=== PATIENT | male | born 1955 | race Caucasian/White ===

== ENCOUNTER 2016-12-01 05:51 | Inpatient (IN) | payer OTHER ==
[2016-11-18 13:15] VITALS: BMI 27.0
--- NOTE | 2016-11-18 13:55 | PAT Medication Instructions ---
Service Date Nov 18, 2016. Current Home Medication List Aspirin (Aspir-Low), 81 MG PO QAM Bilberry (Vaccinium Myrtillus) (Bilberry), 250 MG PO QAM Cholecalciferol (Vitamin D3), 1 TAB PO QAM Fish Oil ([place]-3), 1 CAP PO QAM Insulin Human Lispro (Insulin Humalog Pump ), 1 EA N/A UD Levothyroxine Sodium (Levothyroxine Sodium), 125 MCG PO QAM Losartan Potassium (Cozaar), 50 MG PO QAM Lovastatin (Mevacor), 20 MG PO QAM Multivitamin (Multivitamin), 1 TAB PO QAM [Core Minerals ], 1 TAB PO QAM [Denisse Antioxidant ], 1 TAB PO QAM Medication Instructions For Your Scheduled Surgery - Check with surgeon/desk manager: Aspirin (Aspir-Low), 81 MG PO QAM - Hold the following medications 2 weeks prior to surgery: Fish Oil ([place]oose-3), 1 CAP PO QAM Bilberry (Vaccinium Myrtillus) (Bilberry), 250 MG PO QAM [Core Minerals ], 1 TAB PO QAM [Denisse Antioxidant ], 1 TAB PO QAM - Hold the following medications the morning of surgery: Multivitamin (Multivitamin), 1 TAB PO QAM Losartan Potassium (Cozaar), 50 MG PO QAM Cholecalciferol (Vitamin D3), 1 TAB PO QAM - Take the following medications the morning of surgery with a sip of water: Lovastatin (Mevacor), 20 MG PO QAM Levothyroxine Sodium (Levothyroxine Sodium), 125 MCG PO QAM - For Insulin Dependent Diabetic patients: Test blood sugar A.M. of surgery. Insulin Human Lispro (Insulin Humalog Pump ), 1 EA N/A UD- continue as basal rate If you have any questions please call us at [phone] or [phone] or [phone]
--- NOTE | 2016-11-18 14:25 | DIAGNOSTIC IMAGING REPORT ---
CHEST PREADMISSION(PA/LAT) CLINICAL HISTORY: PAT preoperative evaluation COMPARISON STUDY: No previous studies for comparison. FINDINGS: Lungs are clear. The cardiac silhouette is unremarkable. Diaphragms smooth. Several old right-sided rib fractures. IMPRESSION: No acute process. Electronically signed by: Ganga Jack M.D. 11/18/2016 2:23 PM Dictated Date/Time: 11/18/2016 2:23 PM
[2016-11-18 14:30] LABS: BASO % 0.2 %; BASO ABS # 0.02 K/uL (0-0.2); COMPLETE YES; EOS % 2.7 %; HEMATOCRIT 44.3 % (42-52); IG% 0.2 %; LYMPH % 42.8 %; LYMPH ABS # 3.45 K/uL (1.2-3.4); MEAN CELL VOLUME 93.7 fL (80-100); MEAN CORPUSCULAR HEMOGLOBIN 29.8 pg (25-34); MEAN CORPUSCULAR HGB CONC 31.8 g/dl (32-36); MONO % 10.7 %; NEUT % 43.4 %; PLATELET COUNT 326 K/uL (130-400); RED BLOOD COUNT 4.73 M/uL (4.7-6.1); WHITE BLOOD COUNT 8.06 K/uL (4.8-10.8)
[2016-11-18 14:34] LABS: CALCIUM 9.3 mg/dl (8.5-10.1); CREATININE 0.84 mg/dl (0.60-1.40); POTASSIUM 4.6 mmol/L (3.5-5.1)
[2016-11-18 14:40] LABS: URINE APPEARANCE CLEAR (CLEAR); URINE BILIRUBIN NEG (NEG); URINE COLOR YELLOW; URINE NITRITE NEG (NEG); URINE SPECIFIC GRAVITY 1.028 (1.000-1.030); UROBILINOGEN NEG (NEG)
[2016-11-18 15:00] LABS: MANUAL MICROSCOPIC REQUIRED? NO; REVIEW REQ? NO
[~2016-12-01] VITALS: Ht 162.6 cm; Wt 73.4 kg
[2016-12-01] VITALS (9 sets, daily range): BP systolic 122–157; BP diastolic 66–94; PULSE 72–100; TEMP 36.6–37.4; O2SAT 95–100; BMI 27.0
[~2016-12-01 05:51] MED LIST: ASPI81TA25 PO; BILB150C PO; CHOL100058 PO; INSPMPHMLG; LACTATED RINGER'S 1000ML 1,000 ML IV SCH; LEVO125T4 PO; LOSA50TA6 PO; LOVA20TA4 PO; MULT-506 PO; OMEG10007 PO; [UNRECOGNIZED DRUG - OTHER] PO; [UNRECOGNIZED DRUG - OTHER] PO
[2016-12-01] MEDS ORDERED: HEPARIN SOD 5000 UNIT/0.5 ML CARP SQ SCH (06:00)
[2016-12-01] MEDS ORDERED: CEFOXITIN IV 2,000 MG in DEXTROSE 5% 50ML 50 ML IV SCH (06:00)
[2016-12-01] MEDS ORDERED: LACTATED RINGER'S 1000ML 1,000 ML IV SCH (06:00)
[2016-12-01] MEDS ORDERED: CEFAZOLIN 2000 MG/60 ML D5W IV SCH (06:00)
[2016-12-01] MEDS ORDERED: BUPIVACAINE 0.5 % 5 MG/1 ML MPF 30ML VIAL ONE (06:52)
[2016-12-01] MEDS ORDERED: MIDAZOLAM HCL 1 MG/ML 2ML VIAL ONE (07:05)
[2016-12-01] MEDS ORDERED: FENTANYL CITRATE INJ 50 MCG/1 ML 2 ML VIAL ONE ×2 (07:06→08:29)
[2016-12-01] MEDS ORDERED: ONDANSETRON INJ 2 MG/ML 2 ML VIAL ONE (07:17)
[2016-12-01] MEDS ORDERED: LIDOCAINE HCL 2% 2 ML VIAL (20MG/ML) ONE (07:17)
[2016-12-01] MEDS ORDERED: GLYCOPYRROLATE INJ 0.2 MG/ML VIAL ONE (07:17)
[2016-12-01] MEDS ORDERED: NEOSTIGMINE METHYLSULFATE 5 MG/5 ML SYR ONE (07:17)
[2016-12-01] MEDS ORDERED: LARYING-O-JET KIT (LTA) ONE ×2 (07:17)
[2016-12-01] MEDS ORDERED: PROPOFOL IV EMULSION 10 MG/ML 20 ML VIAL IV ONE (07:17)
[2016-12-01] MEDS ORDERED: DEXAMETHASONE SOD INJ 4 MG/ML VIAL ONE (07:17)
[2016-12-01] MEDS ORDERED: EpHEDrine SULFATE 50MG/5ML SYR ONE (07:17)
[2016-12-01] MEDS ORDERED: ROCURONIUM BROMIDE 10 MG/ML 5 ML VIAL ONE (07:17)
[2016-12-01] MEDS ORDERED: PHENYLEPHRINE 100MCG/ML 5ML SYR ONE (07:17)
--- NOTE | 2016-12-01 07:56 | History & Physical Bridge Note ---
H&P Re-Evaluation Bridge Note: I have examined the patient, reviewed the History & Physical and in the interval since the performance of the History & Physical I have noted the following changes of clinical significance: No changes noted
[2016-12-01] MEDS ORDERED: NURSING VERBAL MED ORDER ONE (08:15)
[2016-12-01] MEDS ORDERED: BELLADONNA/OPIUM SUPP 60 MG SUPP PR ONE ×2 (08:21→09:32)
[2016-12-01] MEDS ORDERED: LABETALOL HCL IV 5 MG/ML 20ML IV ONE (08:50)
[2016-12-01] MEDS ORDERED: PROMETHAZINE HCL INJ 6.25 MG in SODIUM CHLORIDE 0.9% 50ML 50 ML IV PRN (09:15)
[2016-12-01] MEDS ORDERED: ATROPINE SULFATE 0.1 MG/ML 5ML SYR IV PRN (09:15)
[2016-12-01] MEDS ORDERED: EpHEDrine SULFATE INJ 50 MG/ML AMP IV PRN (09:15)
[2016-12-01] MEDS ORDERED: ONDANSETRON INJ 2 MG/ML 2 ML VIAL IV PRN ×2 (09:15→10:45)
[2016-12-01] MEDS ORDERED: NovoLIN-R INSULIN PER UNIT CHARGE ONE (10:03)
[2016-12-01] MEDS ORDERED: FLOSEAL HEMOSTATIC MATRIX 10ML TOP ONE (10:43)
[2016-12-01] MEDS ORDERED: KETOROLAC TROMETHAMINE 15 MG/ML VIAL IV PRN (10:45)
[2016-12-01] MEDS ORDERED: OXYBUTYNIN CHLORIDE 5 MG TAB PO PRN (10:45)
[2016-12-01] MEDS ORDERED: HYDROmorphone INJ 1 MG/ML SYR IV PRN (10:45)
[2016-12-01] MEDS ORDERED: PHARMACY GLYCEMIC MGMT CONSULT PRN (11:09)
[2016-12-01] MEDS: FENTANYL CITRATE INJ 50 MCG/1 ML 2 ML VIAL IV PRN ×4 (11:23→11:43)
[2016-12-01 11:24] LABS: HEMATOCRIT 37.3 % (42-52); MEAN CORPUSCULAR HEMOGLOBIN 31.2 pg (25-34); MEAN PLATELET VOLUME 9.8 fL (7.4-10.4); PLATELET COUNT 264 K/uL (130-400); RED BLOOD COUNT 4.01 M/uL (4.7-6.1); WHITE BLOOD COUNT 10.71 K/uL (4.8-10.8)
--- NOTE | 2016-12-01 11:27 | [facility] Operative Report ---
Operative Report Operative Date Dec 01, 2016. Pre-Operative Diagnosis Prostate cancer. Post-Operative Diagnosis Same as preop. Procedure(s) Performed Robotic assisted Laparoscopic Prostatectomy, bilateral pelvic lymph node dissection Surgeon Dr. Wilkinson Dietist Surgeon(s) HAYDEN Arnold Estimated Blood Loss 100 ml Findings As per operative report Specimens A: Deirdre prostatic fat B: Right pelvic lymph nodes (has clip) C: Left pelvic lymph nodes D: Prostate and seminal vesicle Drains Valdivia Anesthesia gen Complication(s) None Disposition Recovery Room / PACU (stable) Indications Prostate ca; MRI findings concerning for extracapsular extension; strong family hx Description of Procedure Tj Foster was identified in the preoperative holding area, appropriate informed consents were reviewed and completed, and he was transported to the operating suite. Subcutaneous heparin was administered in the pre-operative holding area. Upon arrival in the operating suite, he received approrpiate antibiotics and general anesthesia. He was positioned in dorsal lithotomy, a B& O suppository was inserted after digital rectal exam, and he was prepped and draped in standard fashion. A valdivia catheter was inserted in the sterile field. A Verress needle was passed per umbilicus with uniform insuflation of the abdomen to 15mmHg. He was placed in steep trendelenberg position. A periumbilical incision was then made to accomodate a 12mm visiport with 10mm 0degree laparascope. Inspection of the abdomen was carried out, and there was no evidence of traumatic entry or injury secondary to the Verress needle. The anterior abdominal wall was inspected and all planned port sites were determined to be safe and clear of adhesions. Ports were placed in a standard robotic prostatectomy template without incident. To begin the robotic portion of the case, the left lateral aspect of the sigmoid was mobilized off of the left pelvic side wall to allow the pouch of Jun to be appropriately emptied. The medial umbilical ligaments were then controlled with bipolar electrocautery just inferior to the umbilicus. Following cauterization, they were divided utilizing monopolar cautery. A peritoneal incison was carried from this location to the medial aspect of the internal inguinal rings bilaterally with care to avoid opening through the ring. This incision was concluded when the vas deferens was reached. Dissection of the bladder and prostate off of the posterior aspect of the pubic arch was completed allowing full visualization of the prostate. The fat overlying the prostate was removed en bloc and passed off the table as a specimen labeled "periprostatic fat". The endopelvic fascia was cleared during this portion of the procedure, and subsequently opened - first on the right and then the left. The incision through the endopelvic fascia began near the prostate-bladder junction and was carried to the apex with extreme care to preserve all lateral levator musculature as well as the periurethral musculature and sphincter complex. The puboprostatic ligaments were thinned slightly bilaterally before placing a 0-vicryl figure of 8 stitch around the DVC. The lymph node dissection was then conducted. External iliac vessles were identified on the pelvic side wall. The packet of fat and lymphatic tissue that resides just under the iliac vein was elevated and off of the vein with a split and roll technique. The packet was dissected laterally to the circumflex vein, distally to the obturator nerve which was preserved. The proximal aspect of the packet was carried towards the bifurcation of the iliac vessels. A combination of monopolar and bipolar cautery were used to assist with control. After completing the dissection on both sides, the packets were collected and passed off of the table as specimens labeled "pelvic lymp nodes". My attention then returned to the prostate, with identification of the bladder neck aided by gentle traction on the valdivia catheter and lateral to medial pressure at the presumed level of the bladder neck with the robotic instruments. An anterior cystotomy was made, the valdivia balloon deflated and the cathetere guided through the incision to allow anterior retraction. I attempted to preserve maximal bladder neck musculature as I circumferentially developed the bladder neck. After incision through the posterior aspect of the mucosa, the dissection was carried through detrusor muscle until the bilateral ampullae of the vasa were identified. Vasa were each dissected before being transected. These were used to further aide in anterior retraction as the bilateral seminal vesicals were dissected with very judicious use of bipolar electrocautery. Following SV dissection, a posterior plane behind the prostate was developed - splitting Denonvillier's fascia. This dissection was carried as far as possible towards the apex as well as far as possible laterally. An incision in the lateral prostatic fascia was then made bilaterally to facilitate control of the vascular pedicles. The pedicles were each controlled with a series of weck clips. The neurovascular bundles were identified and an aggressive nerve sparing was performed. The apical attachments of the prostate were remaining at that stage. The DVC was divided with bipolar electrocautery. Deirdre-prostatic tissue incised with sharp cautery and monopolar cautery. Maximal urethral length was preserved before dividing the urethra with sharp dissection. The prostate was collected in an endocatch bag and moved out of the field of vision. Hemostasis was confirmed and anastamosis of the bladder and urethra was completed utilizing a double armed V-Lock stitch. A new valdivia catheter was inserted and the anastamosis tested with irrigation. There was no evidence of leak. Floseal coagulant was placed around the anastamosis. The robot was undocked, the specimen extracted through expansion of the deirdre- umbilical camera port. The fascia was closed with a series of 0-PDS figure of 8 stitches. The right vector control assistant port was closed in two layers - with a figure of 8 0-vicryl to reapproximate the fascia followed by 4-0 monocryl to close the skin. Monocryl was used to close all other skin incisions. All wounds were infiltrated with marcaine prior to application of Dermabond. The case was concluded and the patient taken to the PACU in stable condition. I attest to the content of the Intraoperative Record and any orders documented therein. Any exceptions are noted below.
[2016-12-01 11:29] LABS: MEAN CORPUSCULAR HGB CONC 33.5 g/dl (32-36)
[2016-12-01] MEDS: HYDROmorphone INJ 1 MG/ML SYR IV PRN ×2 (11:49→11:57)
[2016-12-01 11:53] LABS: BUN/CREATININE RATIO 14.2 (10-20); CALCIUM 8.2 mg/dl (8.5-10.1); CREATININE 0.91 mg/dl (0.60-1.40)
[2016-12-01] MEDS ORDERED: KETOROLAC TROMETHAMINE 30 MG/ML VIAL ONE (12:01)
--- NOTE | 2016-12-01 12:55 | Anesthesiology Progress Note ---
Anesthesia Post Op Note Date & Time Dec 01, 2016 at 12:55 Vital Signs Pain Intensity: 5 Vital Signs Past 12 Hours Date Time Temp Pulse Resp B/P (MAP) Pulse Ox O2 Delivery O2 Flow Rate FiO2 12/01/16 12:45 36.2 71 13 124/62 100 Nasal Cannula 2 12/01/16 12:40 36.2 63 14 113/58 100 Nasal Cannula 2 12/01/16 12:30 51 19 104/65 100 Nasal Cannula 2 12/01/16 12:20 49 18 116/54 100 Nasal Cannula 2 12/01/16 12:10 58 16 118/56 100 Nasal Cannula 2 12/01/16 12:00 47 13 118/67 100 Nasal Cannula 2 12/01/16 11:50 52 24 125/59 100 Nasal Cannula 2 12/01/16 11:40 49 20 112/53 100 Oxymask 3 12/01/16 11:30 45 12 103/59 100 Oxymask 4 12/01/16 11:20 52 13 112/61 100 Oxymask 8 12/01/16 11:10 58 16 115/57 100 Oxymask 10 12/01/16 11:02 36.8 63 20 116/70 100 Oxymask 10 12/01/16 06:16 36.7 81 18 157/94 (115) 96 Room Air Notes Mental Status: alert / awake / arousable, participated in evaluation Pt Amnestic to Procedure: Yes Nausea / Vomiting: adequately controlled Pain: adequately controlled Airway Patency, RR, SpO2: stable & adequate BP & HR: stable & adequate Hydration State: stable & adequate Anesthetic Complications: no major complications apparent
--- NOTE | 2016-12-01 13:32 | Pharmacy Progress Note ---
Glycemic Control Intl Consult Date of Service Dec 01, 2016. Scope Glycemic Pharmacist consulted by Karrie BLAKE on 12/01/16 for glycemic control and to write orders per [facility] inpatient glycemic control protocol Objective Weight (Kilograms): 73.40 Accuchecks BSG (last 24hrs): Test 12/01/16 06:41 12/01/16 08:45 12/01/16 09:58 12/01/16 11:10 Bedside Glucose 133 mg/dl (70-99) 133 mg/dl (70-99) 184 mg/dl (70-99) 146 mg/dl (70-99) Random Glucose 163 mg/dl (70-99) Laboratory Data (last 24hrs) Test 12/01/16 11:10 Anion Gap 5.0 mmol/L BUN/Creatinine Ratio 14.2 Blood Urea Nitrogen 13 mg/dl Creatinine 0.91 mg/dl Potassium Level 4.0 mmol/L Sodium Level 142 mmol/L White Blood Count 10.71 K/uL Recent Pertinent Medications Outpatient Anti-diabetic Regimen: * Humalog insulin pump * Basal rate: currently at 0.65, increase to 0.85 at 1800 * CF/CR: 30/15 * Goal range: 120-180 * patient reported to RN that he checks BSG 7 times daily Risk Factors for Insulin Resistance: * Infection: Ancef radha-op * Recent Surgery: POD #0 laparoscopic prostatectomy * Diet: clear liquid, T1DM Assessment & Plan ASSESSMENT: * 61 yr old male s/p laparoscopic prostatectomy today with adequate glycemic control since time of admission. * Patient is ordered to continue home insulin pump and self manage BSGs with insulin pump per outpatient settings. * I verified with RN that insulin pump is intact s/p surgery * RN will have patient read and sign agreement [id number] Insulin Pump Therapy Patient Agreement. * RN will provide and explain form [id number] Flowsheet for Patient * Patient will document their insulin dose given on NS-824 which is kept at the bedside, available to caregivers upon request, and which becomes part of the permanent medical record. If at any time the patients condition evidences that he/she is not able to manage the insulin pump (i.e. frequent hypo/hyperglycemia) Pharmacy will assume glycemic control by discontinuing the pump & managing with SQ basal bolus insulin regimen for the interim. ADA & AACE recommend a goal blood sugar range 140-180 mg/dl for the majority of critically ill & non-critically ill patients. However, more stringent targets may be selected in individual cases. PLAN FOR INPATIENT GLYCEMIC CONTROL: * Continue Humalog insulin pump per outpatient settings * Please note that the plan above was derived based on current level of insulin resistance and hospital stress. These recommendations are appropriate for inpatient admission only. Plan of care upon discharge will need to be reassessed to avoid potential outpatient hypo/hyperglycemia. Thank you.
[2016-12-01 14:14] LABS: PROTHROMBIN TIME (PATIENT) 10.7 SECONDS (9.0-12.0)
[2016-12-01] MEDS: LACTATED RINGER'S 1000ML 1,000 ML IV SCH ×2 (14:32→19:25)
[2016-12-01] MEDS ORDERED: NURSING DECISION MEDICATION ORDER SCH (14:45)
[2016-12-01] MEDS ORDERED: COUGH DROP (SUGAR FREE) LOZ 24 LOZ/1 BOX ONE (14:45)
[2016-12-01] MEDS: ACETAMINOPHEN/CODEINE 300/30MG TAB PO PRN ×2 (14:47→19:26)
[2016-12-01] MEDS ORDERED: INSULIN HUMAN LISPRO (humaLOG) 100 UNITS/ML VIAL SC PRN (15:00)
[2016-12-01] MEDS ORDERED: GLUCOSE 40% GEL 15 GM TUBE PO PRN (15:00)
[2016-12-01] MEDS ORDERED: GLUCOSE 10 TABS/TUBE PO PRN (15:00)
[2016-12-01] MEDS ORDERED: DEXTROSE 50% 50 ML SYR IV PRN (15:00)
[2016-12-01] MEDS ORDERED: COUGH DROP (SUGAR FREE) LOZ 24 LOZ/1 BOX PO PRN (15:00)
[2016-12-01] MEDS ORDERED: GLUCAGON FOR INJ 1 MG VIAL SQ PRN (15:00)
[2016-12-01] MEDS: CEFAZOLIN IV 2,000 MG in DEXTROSE 5% 50ML 50 ML IV SCH ×2 (15:30→23:33)
[2016-12-01] MEDS: HEPARIN SOD 5000 UNIT/0.5 ML CARP SQ SCH (18:31)
[2016-12-01] MEDS: ACETAMINOPHEN 500 MG TAB PO SCH ×2 (18:32→23:34)
[2016-12-01] MEDS: KETOROLAC TROMETHAMINE 30 MG/ML VIAL IV. PRN (19:38)
[2016-12-01] MEDS: DOCUSATE SODIUM 100 MG CAP PO SCH (21:00)
[2016-12-02 02:41] VITALS: BP 135/68; PULSE 65; TEMP 37; O2SAT 95
[2016-12-02] MEDS: LACTATED RINGER'S 1000ML 1,000 ML IV SCH ×2 (02:41→09:58)
[2016-12-02] MEDS: ACETAMINOPHEN 500 MG TAB PO SCH ×4 (05:51→22:55)
[2016-12-02] MEDS: LEVOTHYROXINE 125 MCG TAB PO SCH (05:51)
[2016-12-02] MEDS: HEPARIN SOD 5000 UNIT/0.5 ML CARP SQ SCH ×2 (05:53→19:50)
[2016-12-02] MEDS: KETOROLAC TROMETHAMINE 30 MG/ML VIAL IV. PRN ×3 (05:56→21:28)
[2016-12-02 06:05] LABS: BASO % 0.2 %; BASO ABS # 0.02 K/uL (0-0.2); COMPLETE YES; EOS % 1.7 %; HEMATOCRIT 35.3 % (42-52); IG% 0.1 %; LYMPH % 31.2 %; LYMPH ABS # 3.14 K/uL (1.2-3.4); MEAN CELL VOLUME 93.9 fL (80-100); MEAN CORPUSCULAR HEMOGLOBIN 30.9 pg (25-34); MEAN CORPUSCULAR HGB CONC 32.9 g/dl (32-36); MEAN PLATELET VOLUME 10.5 fL (7.4-10.4); MONO % 12.1 %; NEUT % 54.7 %; PLATELET COUNT 225 K/uL (130-400); RED BLOOD COUNT 3.76 M/uL (4.7-6.1); WHITE BLOOD COUNT 10.05 K/uL (4.8-10.8)
[2016-12-02 06:42] LABS: BUN/CREATININE RATIO 8.5 (10-20); CREATININE 0.79 mg/dl (0.60-1.40); POTASSIUM 4.2 mmol/L (3.5-5.1)
[2016-12-02 07:53] VITALS: BP 132/64; PULSE 70; TEMP 36.7; O2SAT 94
[2016-12-02 07:59] VITALS: O2SAT 94
--- NOTE | 2016-12-02 08:07 | Progress Note ---
Subjective Date of Service: Dec 02, 2016. Subjective Pt evaluation today including: conversation w/ patient, physical exam, chart review, lab review Voiding: valdivia catheter in place Did very well overnight Ambulated Tolerating liquid by mouth No nausea, pain well-controlled Labs appropriate 12/02/16 05:30 Red Blood Count 3.76, Mean Corpuscular Volume 93.9, Mean Corpuscular Hemoglobin 30.9, Mean Corpuscular Hemoglobin Concent 32.9, Mean Platelet Volume 10.5, Neutrophils (%) (Auto) 54.7, Lymphocytes (%) (Auto) 31.2, Monocytes (%) (Auto) 12.1, Eosinophils (%) (Auto) 1.7, Basophils (%) (Auto) 0.2, Neutrophils # (Auto ) 5.49, Lymphocytes # (Auto) 3.14, Monocytes # (Auto) 1.22, Eosinophils # (Auto ) 0.17, Basophils # (Auto) 0.02 12/02/16 05:30 Test 12/01/16 13:14 12/01/16 13:36 12/02/16 05:30 Bedside Glucose 151 mg/dl (70-99) Prothrombin Time 10.7 SECONDS (9.0-12.0) Prothromb Time International Ratio 1.0 (0.9-1.1) White Blood Count 10.05 K/uL (4.8-10.8) Red Blood Count 3.76 M/uL (4.7-6.1) Hemoglobin 11.6 g/dL (14.0-18.0) Hematocrit 35.3 % (42-52) Mean Corpuscular Volume 93.9 fL (80-100) Mean Corpuscular Hemoglobin 30.9 pg (25-34) Mean Corpuscular Hemoglobin Concent 32.9 g/dl (32-36) Platelet Count 225 K/uL (130-400) Mean Platelet Volume 10.5 fL (7.4-10.4) Neutrophils (%) (Auto) 54.7 % Lymphocytes (%) (Auto) 31.2 % Monocytes (%) (Auto) 12.1 % Eosinophils (%) (Auto) 1.7 % Basophils (%) (Auto) 0.2 % Neutrophils # (Auto) 5.49 K/uL (1.4-6.5) Lymphocytes # (Auto) 3.14 K/uL (1.2-3.4) Monocytes # (Auto) 1.22 K/uL (0.11-0.59) Eosinophils # (Auto) 0.17 K/uL (0-0.5) Basophils # (Auto) 0.02 K/uL (0-0.2) RDW Standard Deviation 48.0 fL (36.4-46.3) RDW Coefficient of Variation 14.0 % (11.5-14.5) Immature Granulocyte % (Auto) 0.1 % Immature Granulocyte # (Auto) 0.01 K/uL (0.00-0.02) Anion Gap 4.0 mmol/L (3-11) Est Creatinine Clear Calc Drug Dose 89.0 ml/min Estimated GFR () 111.5 Estimated GFR (Non- 96.2 BUN/Creatinine Ratio 8.5 (10-20) Calcium Level 8.0 mg/dl (8.5-10.1) Review of Systems Constitutional: No see HPI, No fever, No chills, No sweats, No weight loss, No weakness, No fatigue, No problem reported Abdomen: No see HPI, No pain, No nausea, No vomiting, No diarrhea, No constipation, No GI bleeding, No problem reported Endo: No see HPI, No fatigue, No excessive thirst, No excessive urination, No problem reported Objective Vital Signs Date Time Temp Pulse Resp B/P (MAP) Pulse Ox O2 Delivery O2 Flow Rate FiO2 12/02/16 07:59 94 Room Air 12/02/16 07:53 36.7 70 16 132/64 (86) 94 Room Air 12/02/16 02:41 37.0 65 18 135/68 (90) 95 Room Air 12/01/16 23:35 Room Air 12/01/16 23:05 37.0 85 18 133/67 (89) 96 Room Air 12/01/16 19:01 37.4 77 20 130/71 (90) 95 Room Air 12/01/16 15:59 100 16 126/71 (89) 96 Room Air 12/01/16 15:20 96 Room Air 12/01/16 15:00 36.6 93 18 132/72 (92) 98 Nasal Cannula 2.0 12/01/16 14:09 36.6 84 16 122/66 (84) 99 Room Air 12/01/16 13:41 36.6 73 14 139/70 (93) 99 Nasal Cannula 2.0 12/01/16 13:00 Nasal Cannula 2.0 12/01/16 13:00 100 Nasal Cannula 2.0 12/01/16 13:00 36.6 72 16 135/68 (90) 100 Nasal Cannula 2.0 12/01/16 12:45 36.2 71 13 124/62 100 Nasal Cannula 2 12/01/16 12:40 36.2 63 14 113/58 100 Nasal Cannula 2 12/01/16 12:30 51 19 104/65 100 Nasal Cannula 2 12/01/16 12:20 49 18 116/54 100 Nasal Cannula 2 12/01/16 12:10 58 16 118/56 100 Nasal Cannula 2 12/01/16 12:00 47 13 118/67 100 Nasal Cannula 2 12/01/16 11:50 52 24 125/59 100 Nasal Cannula 2 12/01/16 11:40 49 20 112/53 100 Oxymask 3 12/01/16 11:30 45 12 103/59 100 Oxymask 4 12/01/16 11:20 52 13 112/61 100 Oxymask 8 12/01/16 11:10 58 16 115/57 100 Oxymask 10 12/01/16 11:02 36.8 63 20 116/70 100 Oxymask 10 Physical Exam General Appearance: no apparent distress Eyes: normal inspection ENT: hearing grossly normal Neck: no adenopathy Respiratory/Chest: no respiratory distress, no accessory muscle use Cardiovascular: regular rate, rhythm, no edema Abdomen: non tender (no bruising no discharge no erythema), soft, + pertinent finding (urine clear) Extremities: normal range of motion, non-tender Neurologic/Psychiatric: alert, normal mood/affect, oriented x 3 Skin: normal color, warm/dry Lymphatic: no adenopathy Laboratory Results Last 24 Hours Test 12/01/16 08:45 12/01/16 09:58 12/01/16 11:10 12/01/16 13:14 Bedside Glucose 133 mg/dl 184 mg/dl 146 mg/dl 151 mg/dl White Blood Count 10.71 K/uL Red Blood Count 4.01 M/uL Hemoglobin 12.5 g/dL Hematocrit 37.3 % Mean Corpuscular Volume 93.0 fL Mean Corpuscular Hemoglobin 31.2 pg Mean Corpuscular Hemoglobin Concent 33.5 g/dl RDW Standard Deviation 47.3 fL RDW Coefficient of Variation 13.8 % Platelet Count 264 K/uL Mean Platelet Volume 9.8 fL Sodium Level 142 mmol/L Potassium Level 4.0 mmol/L Chloride Level 108 mmol/L Carbon Dioxide Level 29 mmol/L Anion Gap 5.0 mmol/L Blood Urea Nitrogen 13 mg/dl Creatinine 0.91 mg/dl Est Creatinine Clear Calc Drug Dose 77.3 ml/min Estimated GFR () 104.3 Estimated GFR (Non- 90.0 BUN/Creatinine Ratio 14.2 Random Glucose 163 mg/dl Calcium Level 8.2 mg/dl Test 12/01/16 13:36 12/02/16 05:30 Prothrombin Time 10.7 SECONDS Prothromb Time International Ratio 1.0 White Blood Count 10.05 K/uL Red Blood Count 3.76 M/uL Hemoglobin 11.6 g/dL Hematocrit 35.3 % Mean Corpuscular Volume 93.9 fL Mean Corpuscular Hemoglobin 30.9 pg Mean Corpuscular Hemoglobin Concent 32.9 g/dl Platelet Count 225 K/uL Mean Platelet Volume 10.5 fL Neutrophils (%) (Auto) 54.7 % Lymphocytes (%) (Auto) 31.2 % Monocytes (%) (Auto) 12.1 % Eosinophils (%) (Auto) 1.7 % Basophils (%) (Auto) 0.2 % Neutrophils # (Auto) 5.49 K/uL Lymphocytes # (Auto) 3.14 K/uL Monocytes # (Auto) 1.22 K/uL Eosinophils # (Auto) 0.17 K/uL Basophils # (Auto) 0.02 K/uL RDW Standard Deviation 48.0 fL RDW Coefficient of Variation 14.0 % Immature Granulocyte % (Auto) 0.1 % Immature Granulocyte # (Auto) 0.01 K/uL Sodium Level 142 mmol/L Potassium Level 4.2 mmol/L Chloride Level 109 mmol/L Carbon Dioxide Level 29 mmol/L Anion Gap 4.0 mmol/L Blood Urea Nitrogen 7 mg/dl Creatinine 0.79 mg/dl Est Creatinine Clear Calc Drug Dose 89.0 ml/min Estimated GFR () 111.5 Estimated GFR (Non- 96.2 BUN/Creatinine Ratio 8.5 Random Glucose 128 mg/dl Calcium Level 8.0 mg/dl Assessment and Plan Postoperative day #1 status post robotic prostatectomy Progressing very well Sugars been well controlled patient continues to use his pump Plan for Valdivia teaching today Advance diet Ambulate Consider discharges this afternoon or tomorrow morning
[2016-12-02 08:10] LABS: ESTIMATED AVERAGE GLUCOSE 194 mg/dl; HA1C FLAG Normal (Normal)
[2016-12-02] MEDS: CEFAZOLIN IV 2,000 MG in DEXTROSE 5% 50ML 50 ML IV SCH (08:11)
[2016-12-02] MEDS: LOVASTATIN 20 MG TAB PO SCH (08:31)
[2016-12-02] MEDS: CHOLECALCIFEROL 1000 INTER.UNIT TAB PO SCH (08:32)
[2016-12-02] MEDS: ASPIRIN 81 MG ECTAB PO SCH (08:32)
[2016-12-02] MEDS: DOCUSATE SODIUM 100 MG CAP PO SCH ×2 (08:33→20:44)
[2016-12-02] MEDS: LOSARTAN POTASSIUM 50 MG TAB PO SCH (08:33)
[2016-12-02] MEDS ORDERED: NON-FORMULARY MEDICATION (Cholecalciferol (Vitamin D3) 1 TAB) PO SCH (09:00)
--- NOTE | 2016-12-02 10:18 | Anesthesiology Progress Note ---
Anesthesia Post Op Note Date & Time Dec 02, 2016 at 10:17 Vital Signs Vital Signs Past 12 Hours Date Time Temp Pulse Resp B/P (MAP) Pulse Ox O2 Delivery O2 Flow Rate FiO2 12/02/16 08:00 Room Air 12/02/16 07:59 94 Room Air 12/02/16 07:53 36.7 70 16 132/64 (86) 94 Room Air 12/02/16 02:41 37.0 65 18 135/68 (90) 95 Room Air 12/01/16 23:35 Room Air 12/01/16 23:05 37.0 85 18 133/67 (89) 96 Room Air Notes Mental Status: alert / awake / arousable, participated in evaluation Pt Amnestic to Procedure: Yes Nausea / Vomiting: adequately controlled Pain: adequately controlled Airway Patency, RR, SpO2: stable & adequate BP & HR: stable & adequate Hydration State: stable & adequate Anesthetic Complications: no major complications apparent
[2016-12-02] MEDS ORDERED: CLC100 PO (10:28)
[2016-12-02] MEDS ORDERED: DTR5 PO (10:28)
[2016-12-02] MEDS ORDERED: ACET-749 PO (10:28)
[2016-12-02] MEDS ORDERED: CIPR1TAB10 PO (10:28)
--- NOTE | 2016-12-02 10:31 | Discharge Instructions ---
Discharge Instructions Date of Service Dec 02, 2016. Admission Reason for Admission: Prostate Cancer Discharge Discharge Diagnosis / Problem: Prostate Cancer Discharge Goals Goal(s): Decrease discomfort, Increase independence, Improve disease control, Therapeutic intervention Activity Recommendations Activity Limitations: as noted below Shower/Bathe: tomorrow 1. Do not lift >15lbs x 6 weeks. 2. No heavy exercise x 6 weeks. You may engage in light activity such as walking and stairs as tolerated. 3. No sexual intercourse until cleared by Dr. Watkins or Dr. Wilkinson. 4. Do not drive x [address] while taking narcotics. 5. You have been prescribed the antibiotic Ciprofloxaxin. Start this medication 2 days prior to valdivia catheter removal. Finish all of the antibiotic you have been prescribed. 6. Immediately call our office at [phone] if your catheter is removed for any reason. 7. Follow-up as scheduled. Please call our office at [phone] if you need to reschedule for any reason. 8. You may resume taking your fish oil in 1 week. . . Current Hospital Diet Hospital Diet(s): Diabetes Type 1 Diet Discharge Diet Recommended Diet: Diabetes Type 1 Diet Procedures Procedures Performed: Robotic assisted Laparoscopic Prostatectomy, bilateral pelvic lymph node dissection Pending Studies Studies pending at discharge: yes (prostate pathology) List of pending studies: prostate pathology Laboratory Results Hemoglobin A1c Test 12/02/16 05:30 Range/Units Estimated Average Glucose 194 mg/dl Hemoglobin A1c 8.4 H 4.5-5.6 % Medical Emergencies . Who to Call and When: Medical Emergencies: If at any time you feel your situation is an emergency, please call 911 immediately. . Non-Emergent Contact Non-Emergency issues call your: Urologist Call Non-Emergent contact if: temperature is above 101.5, your pain is not controlled, your pain is worsening, your pain is unusual for you, your pain is concerning you, wound has increased drainage, wound has increased redness, wound has increased pain, you have any medication questions . . "Provider Documentation" section prepared by Karrie Lee. . VTE Core Measure Inpt VTE Proph given/why not?: Unfractionated heparin SQ, SCD's [place] Drug Monitoring Program Search Results: patient reviewed within database, no issues identified
[2016-12-02 11:00] VITALS: Ht 162.6 cm; Wt 73.4 kg
[2016-12-02 11:49] VITALS: BP 126/60; PULSE 68; TEMP 36.8; O2SAT 96
[2016-12-02] MEDS ORDERED: NURSING VERBAL MED ORDER ONE (15:15)
[2016-12-02 15:30] VITALS: BP 158/75; PULSE 72; TEMP 36.8; O2SAT 95
[2016-12-02] MEDS ORDERED: MAGNESIUM HYDROXIDE SUSP 30 ML UDC PO PRN (16:15)
[2016-12-02] MEDS ORDERED: BISACODYL 10 MG SUPP PR PRN (16:15)
[2016-12-02] MEDS: POLYETHYLENE (MIRALAX) 17 GM PACK PO SCH ×3 (17:46→19:43)
[2016-12-02 22:45] VITALS: BP 133/69; PULSE 75; TEMP 36.9; O2SAT 95
[2016-12-03] MEDS: LEVOTHYROXINE 125 MCG TAB PO SCH (05:35)
[2016-12-03] MEDS: ACETAMINOPHEN 500 MG TAB PO SCH (05:36)
[2016-12-03] MEDS: HEPARIN SOD 5000 UNIT/0.5 ML CARP SQ SCH (06:31)
[2016-12-03 06:34] LABS: BASO % 0.3 %; BASO ABS # 0.02 K/uL (0-0.2); COMPLETE YES; EOS % 6.3 %; IG% 0.1 %; LYMPH % 38.8 %; MEAN CELL VOLUME 94.7 fL (80-100); MEAN CORPUSCULAR HEMOGLOBIN 31.1 pg (25-34); MEAN CORPUSCULAR HGB CONC 32.8 g/dl (32-36); MEAN PLATELET VOLUME 10.2 fL (7.4-10.4); MONO % 13.3 %; NEUT % 41.2 %; PLATELET COUNT 236 K/uL (130-400); WHITE BLOOD COUNT 7.99 K/uL (4.8-10.8)
[2016-12-03 07:09] LABS: CREATININE 0.74 mg/dl (0.60-1.40)
--- NOTE | 2016-12-03 07:28 | Progress Note ---
Subjective Date of Service: Dec 03, 2016. Subjective Pt evaluation today including: conversation w/ patient, chart review, lab review Voiding: valdivia catheter in place (patent, draining clear, yellow urine) 61 yo male s/p RALRP. Pt denies pain this morning. Denies n/v. Tolerating PO. Ambulating without difficulty. + flatus and BM last evening. Labs stable. I&Os acceptable. Review of Systems Constitutional: No fever, No chills Respiratory: No shortness of breath Cardiac: No chest pain Abdomen: No pain, No nausea, No vomiting Male : No hematuria Heme: No abnormal bleeding/bruising Objective Vital Signs Date Time Temp Pulse Resp B/P (MAP) Pulse Ox O2 Delivery O2 Flow Rate FiO2 12/02/16 22:45 36.9 75 16 133/69 (90) 95 Room Air 12/02/16 22:45 Room Air 12/02/16 15:30 36.8 72 18 158/75 (102) 95 Room Air 12/02/16 15:30 Room Air 12/02/16 11:49 36.8 68 20 126/60 (82) 96 Room Air 12/02/16 08:00 Room Air 12/02/16 07:59 94 Room Air 12/02/16 07:53 36.7 70 16 132/64 (86) 94 Room Air Physical Exam General Appearance: no apparent distress Eyes: normal inspection ENT: hearing grossly normal Neck: no JVD Respiratory/Chest: no respiratory distress, no accessory muscle use Cardiovascular: no JVD Extremities: normal inspection Neurologic/Psychiatric: alert, normal mood/affect, oriented x 3 Skin: normal color Laboratory Results Last 24 Hours Test 12/02/16 08:06 12/03/16 06:00 Bedside Glucose 113 mg/dl White Blood Count 7.99 K/uL Red Blood Count 3.80 M/uL Hemoglobin 11.8 g/dL Hematocrit 36.0 % Mean Corpuscular Volume 94.7 fL Mean Corpuscular Hemoglobin 31.1 pg Mean Corpuscular Hemoglobin Concent 32.8 g/dl Platelet Count 236 K/uL Mean Platelet Volume 10.2 fL Neutrophils (%) (Auto) 41.2 % Lymphocytes (%) (Auto) 38.8 % Monocytes (%) (Auto) 13.3 % Eosinophils (%) (Auto) 6.3 % Basophils (%) (Auto) 0.3 % Neutrophils # (Auto) 3.30 K/uL Lymphocytes # (Auto) 3.10 K/uL Monocytes # (Auto) 1.06 K/uL Eosinophils # (Auto) 0.50 K/uL Basophils # (Auto) 0.02 K/uL RDW Standard Deviation 49.9 fL RDW Coefficient of Variation 14.4 % Immature Granulocyte % (Auto) 0.1 % Immature Granulocyte # (Auto) 0.01 K/uL Sodium Level 142 mmol/L Potassium Level 4.0 mmol/L Chloride Level 111 mmol/L Carbon Dioxide Level 28 mmol/L Anion Gap 3.0 mmol/L Blood Urea Nitrogen 8 mg/dl Creatinine 0.74 mg/dl Est Creatinine Clear Calc Drug Dose 95.0 ml/min Estimated GFR () 114.6 Estimated GFR (Non- 98.9 BUN/Creatinine Ratio 11.0 Random Glucose 121 mg/dl Calcium Level 8.0 mg/dl Assessment and Plan POD #2 s/p RALRP AFVSS. Pt doing well post-op. Will plan for d/c home after breakfast. F/u with Dr. Wilkinson as scheduled. Discharge planning: home
[2016-12-03 07:34] VITALS: BP 164/77; PULSE 90; TEMP 37; O2SAT 95
[2016-12-03 08:00] VITALS: O2SAT 95
[2016-12-03 08:17] VITALS: O2SAT 95
[2016-12-03] MEDS: ASPIRIN 81 MG ECTAB PO SCH (09:14)
[2016-12-03] MEDS: DOCUSATE SODIUM 100 MG CAP PO SCH (09:14)
[2016-12-03] MEDS: LOVASTATIN 20 MG TAB PO SCH (09:14)
[2016-12-03] MEDS: LOSARTAN POTASSIUM 50 MG TAB PO SCH (09:14)
[2016-12-03] MEDS: CHOLECALCIFEROL 1000 INTER.UNIT TAB PO SCH (09:15)
[2016-12-03] MEDS: POLYETHYLENE (MIRALAX) 17 GM PACK PO SCH (09:16)
[2016-12-03 10:11] VITALS: BP 164/77; PULSE 90; TEMP 37; O2SAT 95
--- NOTE | 2016-12-04 09:36 | Discharge Summary ---
Discharge Summary Date of Service Dec 04, 2016. Discharge Summary Admission Date: Dec 01, 2016 at 10:52 Discharge Date: Dec 02, 2016 Discharge Disposition: Home Principal Diagnosis: Prostate Cancer Procedures: robotic prostatectomy Medication Reconciliation New Medications: Ciprofloxacin Hcl (Cipro) 500 Mg Tab 500 MG PO BID, #10 TAB Start 2 days prior to valdivia catheter removal. Acetaminophen/Codeine (Tylenol W/Codeine #3) 300 Mg/30 Mg Tab 1-2 TAB PO Q4H PRN for Pain, #20 TAB 0 Refills Docusate Sodium (Docusate Sodium) 100 Mg Cap 100 MG PO BID PRN for Constipation, #60 CAP 0 Refills Oxybutynin Chloride (Oxybutynin Chloride) 5 Mg Tab 5 MG PO Q8 PRN for BLADDER SPASMS, #30 TAB 0 Refills Continued Medications: Aspirin (Aspir-Low) 81 Mg Tab 81 MG PO QAM Bilberry (Vaccinium Myrtillus) (Bilberry) 150 Mg Cap 250 MG PO QAM Cholecalciferol (Vitamin D3) 10,000 Unit Tab 1 TAB PO QAM Insulin Human Lispro (Insulin Humalog Pump ) Pump 1 EA N/A UD, EA Levothyroxine Sodium (Levothyroxine Sodium) 125 Mcg Tab 125 MCG PO QAM Losartan Potassium (Cozaar) 50 Mg Tab 50 MG PO QAM, TAB Lovastatin (Mevacor) 20 Mg Tab 20 MG PO QAM, TAB [Core Minerals ] () 1 TAB PO QAM [Denisse Antioxidant ] () 1 TAB PO QAM Discontinued Medications: Fish Oil ([place]-3) 1 Ea Cap 1 CAP PO QAM, CAP 1000 MG IS DOSE LISTED ON PT MED LIST Hospital Course Admitted for a robotic prostatectomy. Details of the procedure as dictated previously in the operative report. In summary, he tolerated the procedure very well and was transferred to the floor in stable condition. He is a Type I DM with an insulin pump, BG was well controlled during the stay. Urine output and lab exams were also appropriate. He stayed until the morning of POD#2 secondary to his DM, however, he remained stable throughout and was discharged home on the morning of POD#2. Total time spent on discharge = This includes examination of the patient, discharge planning, medication reconciliation, and communication with other providers. Discharge Instructions Please see previously written d/c instructions
== END 2016-12-03 11:35 | disposition home or self-care (01) | DRG 708 ==
LOC: C.ACU 05:51 → C.MSN 10:52 → ENRESERV 12:12
PROVIDERS: ADMIT Urology; ATTEND Urology
PROC: 0VT04ZZ Resection of Prostate, Percutaneous Endoscopic Approach (ICD-10-PCS; principal; 2016-12-01 08:00)
PROC: 07BC4ZX Excision of Pelvis Lymphatic, Percutaneous Endoscopic Approach, Diagnostic (ICD-10-PCS; principal; 2016-12-01 08:00)
DX: C61 Malignant neoplasm of prostate (principal); E10.3599 Type 1 diabetes mellitus with proliferative diabetic retinopathy without macular edema, unspecified eye; Z79.4 Long term (current) use of insulin; Z96.41 Presence of insulin pump (external) (internal); F10.10 Alcohol abuse, uncomplicated; F32.9 Major depressive disorder, single episode, unspecified; E78.5 Hyperlipidemia, unspecified; E06.3 Autoimmune thyroiditis; E03.9 Hypothyroidism, unspecified; I10 Essential (primary) hypertension; N52.9 Male erectile dysfunction, unspecified; E55.9 Vitamin D deficiency, unspecified; Z85.46 Personal history of malignant neoplasm of prostate; Z80.9 Family history of malignant neoplasm, unspecified; Z82.49 Family history of ischemic heart disease and other diseases of the circulatory system; Z79.899 Other long term (current) drug therapy; Z79.82 Long term (current) use of aspirin

== ENCOUNTER → 2017-01-14 | Outpatient (CLI) | payer OTHER ==
[~2017-01-14] MED LIST changes: +ACET-749 PO; +CIPR1TAB10 PO; +CLC100 PO; +DTR5 PO; -LACTATED RINGER'S 1000ML 1,000 ML IV SCH; -MULT-506 PO; -OMEG10007 PO
== END | disposition home or self-care (01) ==
LOC: C.LABSPEC 10:48
PROVIDERS: ATTEND Nurse Practitioner Family
DX: R30.0 Dysuria (principal)

== ENCOUNTER → 2017-01-25 | Outpatient (CLI) | payer OTHER ==
[2017-01-25 18:11] LABS: ESTIMATED AVERAGE GLUCOSE 183 mg/dl; HA1C FLAG Normal (Normal)
== END | disposition home or self-care (01) ==
LOC: C.LAB1850 14:21
PROVIDERS: ATTEND Internal Medicine Endocrinology, Diabetes & Metabolism
DX: E55.9 Vitamin D deficiency, unspecified (principal); E10.9 Type 1 diabetes mellitus without complications

== ENCOUNTER → 2017-07-21 | Outpatient (CLI) | payer OTHER ==
[~2017-07-21] MED LIST changes: +CALC500T72 PO; -CIPR1TAB10 PO; -LEVO125T4 PO; +LEVO125T5 PO
== END | disposition home or self-care (01) ==
LOC: C.LABPBG 14:32
PROVIDERS: ATTEND Urology
DX: C61 Malignant neoplasm of prostate (principal)

== ENCOUNTER → 2017-07-27 | Outpatient (CLI) | payer OTHER ==
[~2017-07-27] MED LIST changes: -ACET-749 PO; -CLC100 PO; -DTR5 PO; +GADAVIST IV PRN
--- NOTE | 2017-07-27 11:43 | DIAGNOSTIC IMAGING REPORT ---
PELVIC COMBO CLINICAL HISTORY: 62 years-old Male presenting with PROSTATE CA,PT HAS REMOVEABLE INSULIN PUMP, prostate removed November 2016, concern for metastatic disease. TECHNIQUE: Multisequence, multiplanar MR imaging of the pelvis was performed before and after the administration of intravenous contrast. IV contrast: 7.5 mL of Gadavist. COMPARISON: 08/31/2016. FINDINGS: Localizer images: Unremarkable. 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 Pelvic organs: The patient is status post prostatectomy. No suspicious enhancing nodularity at the ureteral anastomosis. Visualized portion of the scrotum normal. Bowel: Normal. Lymph nodes: No pelvic lymphadenopathy. Vasculature: Iliac vessels patent. Bone marrow: Normal bone marrow signal intensity. No enhancing lesion. IMPRESSION: Postsurgical changes of prostatectomy without evidence of lymphadenopathy or recurrent disease in the pelvis. Electronically signed by: Hussein Alexandre M.D. 07/27/2017 11:42 AM Dictated Date/Time: 07/27/2017 11:38 AM
== END | disposition home or self-care (01) ==
LOC: C.MRI 10:17
PROVIDERS: ATTEND Physician Assistant Medical
DX: C61 Malignant neoplasm of prostate (principal)

== ENCOUNTER → 2017-07-28 | Outpatient (CLI) | payer OTHER ==
[~2017-07-28] MED LIST changes: -GADAVIST IV PRN
--- NOTE | 2017-07-28 15:04 | DIAGNOSTIC IMAGING REPORT ---
BONE SCAN WHOLE BODY CLINICAL HISTORY: 62 years-old Male presenting with PROSTATE CA. TECHNIQUE: Planar anterior and posterior imaging of the whole body was performed 3 hours following the intravenous administration of 26.6 mCi Tc-99m MDP. COMPARISON: Bone scan from 10/09/2013. FINDINGS: Focal abnormal radiotracer the right acromioclavicular joint and right carpus consistent with degenerative change as on prior exam. The previously noted focal suspicious radiotracer uptake associated with the left posterior fifth rib and lateral left 10th rib are no longer evident. No new lesion. IMPRESSION: 1. Previously demonstrated left posterior fifth and lateral left 10th rib lesions no longer avid. No new sites of active disease. 2. Degenerative changes of the right carpus and right acromioclavicular joint. Electronically signed by: Hussein Alexandre M.D. 07/28/2017 3:02 PM Dictated Date/Time: 07/28/2017 2:59 PM
== END | disposition home or self-care (01) ==
LOC: C.NUCL 11:25
PROVIDERS: ATTEND Physician Assistant Medical
DX: C61 Malignant neoplasm of prostate (principal)

== ENCOUNTER → 2017-12-14 | Outpatient (CLI) | payer OTHER ==
[~2017-12-14] MED LIST changes: -INSPMPHMLG; +INSPMPHMLG PF; -LOVA20TA4 PO; +OMEG10007 PO; +PSYL0.524; +VITACAP37 PO; +primrose oil
[2017-12-14 14:37] VITALS: BP 158/71; PULSE 78; TEMP 36.5; O2SAT 97
--- NOTE | 2017-12-15 08:18 | Radiation Oncology Follow-Up ---
Radiation Oncology Follow-Up Date of Visit Dec 14, 2017. Reason For Visit One-month follow-up and cancer survivorship care plan Radiation Completion Date finished 11-08-2017 Diagnosis (1) Prostate cancer Status: Acute Onset Date: 09/05/2013 Location: Both lobes the prostate Histology Subtype: Adenocarcinoma Stage: ll (B) Permanent Comment: Rising PSA, to 5.16 Status post ultrasound-guided biopsies September 05, 2013 Adenocarcinoma the prostate [place] 3+3 Status post robotic assisted laparoscopic prostatectomy with bilateral pelvic lymph node dissection December 01, 2016 Adenocarcinoma with Rolando 3+4 Positive right apical and left posterior apical margins Stage pT2 PN0 M0 Recheck PSA July 21, 2017 at 0.491 Hormone suppression Lupron 22.5 mg IM July 28, 2017 Lupron 22.5 mg IM October 28, 2017, completed Status post completion of radiation therapy November 08, 2017. He received 7020 cGy utilizing volumetric modulated arc therapy. Last Edited By: Danelle Raymond on Nov 22, 2017 13:00 History of Present Illness We are seeing Tj Foster in consultation at the request of Dr. Wilkinson The patient's was also present during the consultation. ECOG PS: 0 Mr. Foster has a history of insulin-dependent diabetes who was previously diagnosed with prostate cancer. 05/09/2013 --- PSA --- 5.16. Repeated and decreased to 4.0. 09/05/2013 --- transrectal ultrasound-guided biopsy of prostate gland by Dr. Paul --- prostate adenocarcinoma, highest Wil[place] score is [place] 3+3 with no evidence of perineural invasion. Patient elected to undergo active surveillance. 10/09/2013 --- bone scan --- impression: There are foci of abnormal activity seen in the left posterior fifth and lateral left 10th ribs. Although nonspecific the appearance is concerning for metastatic disease. Correlation with anatomic imaging such as CT is recommended. Questionable focus of abnormal activity within the right acetabulum. This could also reflect degenerative change or metastatic disease. Again correlation with anatomic imaging would be helpful. 11/29/2013 --- CT of chest --- CT of chest with associated rib detail does not adequately explain the activity on the patient's prior bone scan. As a result, occult lesions are considered as well as technical artifact on the bone scan. As a follow-up, a prudent exam potentially is an MRI of the ribs versus a repeat bone scan in several months. 08/05/2015 --- transrectal ultrasound-guided biopsy of prostate gland by Dr. Wilkinson --- prostate adenocarcinoma, Rol[place] 3+3 with no evidence of perineural invasion. Patient continued to undergo active surveillance. Unknown date --- MRI of prostate completed at [facility] for targeted biopsy (no date or reports available ) 12/01/2016 --- radical prostatectomy and bilateral pelvic lymph node sampling by Dr. Owen Wilkinson --- prostate adenocarcinoma, [place] 3+4. Tumor present at apical and peripheral capsular margins. No definite extraprostatic extension of tumor identified. No seminal vesicle invasion identified. 2 left pelvic lymph nodes excised and 3 right pelvic lymph nodes excised which are all negative for metastatic carcinoma. 01/15/2017 --- PSA --- 0.07 04/20/2017 --- PSA --- 0.2 06/17/2017 --- PSA --- 0.38 07/21/2017 --- PSA --- 0.491. Based on this PSA rise, Dr. Wilkinson has recommended consideration of salvage radiation therapy. We are now seeing the patient in consultation. The patient states that he does have minimal dribbling and only uses 1 pad per day. He had minimal incontinence following surgery. He denies any hematuria or blood per rectum. He denies any history of inflammatory bowel disease. His urinary IPSS score 7/35. His EPIC QoL score is 14/60. He does follow closely with Dr. Ferreira from endocrinology regarding his diabetes. He is currently retired and works part-time. 11/08/2017--- status post completion of salvage radiation therapy November 08, 2017. He received 7020 cGy. Interim History He has been doing well over the past month in regards to his urinary status. Today he gave an AUA score of 10. At the end of treatment he had given a score of 12. He completed and expanded prostate cancer index composite for clinical practice and gave a score of 0 of 12 and urinary incontinence symptoms. He gave a score of 3 of 12 and urinary irritation symptoms. He gave a score of 1 of 12 and bowel symptoms. He gave a score of 10 of 12 and sexual symptoms. He gave a score of 6 of 12 in hormonal vitality symptoms. His total was 20 of 60. He understands that many of his symptoms are related to the hormone suppression. Allergies Coded Allergies: Oxycodone (Verified Adverse Reaction, Unknown, nausea/vomiting, 12/01/16) Home Medications Scheduled Aspirin (Aspir-Low), 81 MG PO QAM Bilberry (Vaccinium Myrtillus) (Bilberry), 250 MG PO QAM Calcium Ascorbate (Vitamin C), 1 TAB PO DAILY Cholecalciferol (Vitamin D3), 10,000 UNITS PO QAM Fish Oil ([place]-3), 1 CAP PO DAILY Insulin Human Lispro (Insulin Humalog Pump ), 1 EA PF UD Levothyroxine Sodium (Levothyroxine Sodium), 125 MCG PO QAM Losartan Potassium (Cozaar), 50 MG PO QAM Vitamin E (E-400), 1 CAP PO DAILY [Core Minerals ], 2 TAB PO QAM [Denisse Antioxidant ], 1 TAB PO QAM Miscellaneous Medications [primrose oil ] Review of Systems Gastrointestinal: Symptoms: WNL Oral: Symptoms: No Problems Respiratory: Symptoms: Dry Cough Other Respiratory: occ dry cough Urinary: Comments: urgency , nocturia times 3 , urine is deep yellow in color Skin: Symptoms: No Problems Additional Notes: He completed a distress management report and answered "no" to all questions. Physical Exam Vital Signs Date Time Temp Pulse Resp B/P (MAP) Pulse Ox O2 Delivery O2 Flow Rate FiO2 12/14/17 14:37 36.5 78 18 158/71 97 ECOG Performance Status: 0 Fatigue: None General Appearance: no apparent distress Eyes: normal inspection, EOMI ENT: normal ENT inspection, hearing grossly normal Neck: no adenopathy, thyroid normal Respiratory/Chest: lungs clear, no respiratory distress, no accessory muscle use Cardiovascular: regular rate, rhythm, no gallop, no murmur Abdomen: non tender, soft, no organomegaly Extremities: no pedal edema Neurologic/Psychiatric: no motor/sensory deficits, alert, normal mood/affect Skin: warm/dry Pain Management Patient Reports Pain: No Side: Bilateral Patient Preferred Pain Scale: 0 - 10 Initial Pain Intensity: 0.0 Pain Management Plan He denies pain therefore requires no pain management. Laboratory Laboratory Results: were reviewed, and pertinent findings noted below Laboratory Comments: Test 12/14/17 14:52 Prostate Specific Antigen < 0.010 ng/ml (0.000-4.000) Pathology Pathology Results: were reviewed, and pertinent findings noted in HPI Imaging Imaging Studies: not applicable Assessment & Plan Plan: PSA was drawn today. He is going to call tomorrow for his test results. He will continue follow-up with Dr. Wilkinson. He has an appointment for December 30, 2017. 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 He feels that he has done well with undergoing treatment and being an insulin-dependent diabetic. Today we completed a cancer survivorship care plan. A copy of the document was given to the patient. He was given a survivorship booklet. He understands the possible long-term side effects of radiation. He had requested that we review laboratory studies had been obtained at Dr. Mckeon's office. These were reviewed. He plans to get a copy for his records. There was indication that the studies were to be rechecked in 6 weeks. He will follow-up with their office. We asked him to return to our office in 6 months. He may call if he has any questions or concerns in the interim. Total Time In Follow-Up I spent 20 minutes speaking to the patient in performing examination. I spent 20 minutes reviewing information, preparing the survivorship document, and completing this note. Copy To Rivera Mckeon M.D.; Elias Pereira D.O.; Herb Ferreira M.D.; Owen Wilkinson M.D.
== END | disposition home or self-care (01) ==
LOC: C.ONC 14:29
PROVIDERS: ATTEND Physician Assistant Medical
DX: Z08 Encounter for follow-up examination after completed treatment for malignant neoplasm (principal); Z92.3 Personal history of irradiation; Z85.46 Personal history of malignant neoplasm of prostate